=== PATIENT | female | born 1965 | race Native Hawaiian/Other Pacific Islander ===

== ENCOUNTER 2020-01-24 10:53 | Outpatient (CLI) | payer BC ==
[~2020-01-24 10:53] MED LIST: ASPIRIN ADULT L81 MG OR; BENICAR20 MG PO; HYDR25TA60 PO; METO100T37 PO; PEPCID20 MG OR; VENL150C2 PO
== END 2020-01-24 19:11 | disposition home or self-care (01) ==
LOC: RAD 10:53
DX: M25.532 Pain in left wrist (principal)

== ENCOUNTER 2020-03-22 08:04 | Outpatient (CLI) | payer BC, OTHER | END 2020-03-22 21:03 | disposition home or self-care (01) | LOC: LAB 08:04 | PROVIDERS: ATTEND Nurse Practitioner Family | DX: Z03.818 Encounter for observation for suspected exposure to other biological agents ruled out (principal); U07.1 COVID-19; R06.02 Shortness of breath | CPT/HCPCS: 87635; G2023; U0003 ==

== ENCOUNTER 2021-06-29 13:00 | Outpatient (CLI) | payer BC ==
[2021-06-29 13:31] LABS: POTASSIUM 3.6 mmol/L (3.6-5.2)
== END 2021-06-29 19:38 | disposition home or self-care (01) ==
LOC: LABW 13:00
PROVIDERS: ATTEND Anesthesiology
DX: Z01.818 Encounter for other preprocedural examination (principal); I10 Essential (primary) hypertension; E78.00 Pure hypercholesterolemia, unspecified; K21.9 Gastro-esophageal reflux disease without esophagitis; F33.9 Major depressive disorder, recurrent, unspecified; F41.9 Anxiety disorder, unspecified
CPT/HCPCS: 36415; 80048; 93005

== ENCOUNTER 2021-12-03 10:51 | Outpatient (CLI) | payer BC | END 2021-12-03 18:52 | disposition home or self-care (01) | LOC: RAD 10:51 | PROVIDERS: ATTEND Internal Medicine | DX: R05.3 Chronic cough (principal) ==

== ENCOUNTER 2022-01-10 16:04 | Outpatient (CLI) | payer BC | END 2022-01-10 19:27 | disposition home or self-care (01) | LOC: RAD 16:04 | PROVIDERS: ATTEND Internal Medicine | DX: M79.671 Pain in right foot (principal); R22.41 Localized swelling, mass and lump, right lower limb ==